=== PATIENT | female | born 1995 | race African-American/Black ===

== ENCOUNTER 2016-11-03 03:11 | Emergency (ER) | payer MEDICAID ==
[2016-11-03] MEDS ORDERED: NORMAL SALINE 1000 ML 1,000 ML IV ONE ×2 (03:34→04:49)
[2016-11-03] MEDS ORDERED: METOCLOPRAMIDE HCL INJ/PF 10 MG/2 ML SDV IV ONE (03:34)
[2016-11-03] MEDS ORDERED: DIPHENHYDRAMINE HCL 50 MG/ML VIAL IV ONE (03:34)
--- NOTE | 2016-11-03 03:36 | ER Document Report ---
ED GI/ - General Chief Complaint: Pelvic Pain Stated Complaint: ABDOMINAL PAIN,VOMITING Time Seen by Provider: 11/03/16 03:26 Notes: Patient is a 21-year-old female who comes emergency department for chief complaint of lower abdominal pain. She is at 6 weeks gestation by last menstrual period. She denies vaginal bleeding, she states symptoms started yesterday, she has vomited 10 times since yesterday. She states she thinks she has a vaginal discharge, she also states she thinks her "boyfriend was messing around". She denies any fever, flank pain, or dysuria. She denies any surgeries or daily medications other than vitamins. TRAVEL OUTSIDE OF THE [place] IN LAST 30 DAYS: No - Related Data Allergies/Adverse Reactions: No Known Allergies Allergy (Verified 11/03/16 03:16) Home Medications: Current Home Medications Pnv No.95/Ferrous Fum/Folic AC [ Multivitamin Tablet] 1 each PO DAILY [History] Past Medical History - General Information source: Patient - Social History Smoking Status: Never Smoker Frequency of alcohol use: None Drug Abuse: None Lives with: Family Family History: Reviewed & Not Pertinent Patient has suicidal ideation: No Patient has homicidal ideation: No - Medical History Medical History: Negative Renal/ Medical History: Denies: Hx Peritoneal Dialysis Surgical Hx: Negative - Immunizations Immunizations up to date: Yes Hx Diphtheria, Pertussis, Tetanus Vaccination: Yes Review of Systems - Review of Systems Constitutional: No symptoms reported EENT: No symptoms reported Cardiovascular: No symptoms reported Respiratory: No symptoms reported Gastrointestinal: See HPI Genitourinary: See HPI Female Genitourinary: See HPI Musculoskeletal: No symptoms reported Skin: No symptoms reported Hematologic/Lymphatic: No symptoms reported Neurological/Psychological: No symptoms reported Physical Exam - Vital signs Vitals: Temp Pulse Resp BP Pulse Ox 99.0 F 84 18 121/68 98 11/03/16 03:17 11/03/16 03:17 11/03/16 03:17 11/03/16 03:17 11/03/16 03:17 Interpretation: Normal - General General appearance: Alert, Anxious In distress: Moderate - patient vomited and appears uncomfortable - HEENT Head: Normocephalic, Atraumatic Eyes: Normal Pupils: PERRL - Respiratory Respiratory status: No respiratory distress Chest status: Nontender Breath sounds: Normal Chest palpation: Normal - Cardiovascular Rhythm: Regular. No: Tachycardia Heart sounds: Normal auscultation, S1 appreciated, S2 appreciated Murmur: No - Abdominal Inspection: Normal Distension: No distension Bowel sounds: Normal Tenderness: Tender - Generalized lower abdominal tenderness without guarding Organomegaly: No organomegaly - Genitourinary External exam: Normal Speculum exam: Cervix closed, Vaginal discharge - Minimal, scant. No: Cervix open, Products of conception Vaginal bleeding: None Bimanuel exam: No: Cervical motion tender - Back Back: Normal, Nontender. No: Tender, CVA tenderness - Extremities General upper extremity: Normal inspection, Nontender, Normal color, Normal ROM , Normal temperature General lower extremity: Normal inspection, Nontender, Normal color, Normal ROM , Normal temperature, Normal weight bearing. No: Brandon's sign - Neurological Neuro grossly intact: Yes Cognition: Normal Orientation: AAOx4 [place] Coma Scale Eye Opening: Spontaneous [place] Coma Scale Verbal: Oriented [place] Coma Scale Motor: Obeys Commands [place] Coma Scale Total: 15 Speech: Normal Motor strength normal: LUE, RUE, LLE, RLE Sensory: Normal - Psychological Associated symptoms: Anxious - Skin Skin Temperature: Warm Skin Moisture: Dry Skin Color: Normal Course - Re-evaluation Re-evalutation: Patient initially very uncomfortable, she vomited at bedside. She has generalized lower abdominal tenderness without specific area of guarding. No fever, no tachycardia, no hypotension. After medications patient is much more comfortable, however she did vomit again after Reglan and Benadryl. Giving more IV fluids, giving Zofran. CBC unremarkable, chemistry generally unremarkable, urine shows ketones, white blood cells, also has squamous epithelials. Pelvic exam with no concerning abnormalities including no bleeding, scant discharge. No cervical motion tenderness. Yeast present, trichomonas negative, gonorrhea and chlamydia negative. Ultrasound showing living IUP with slightly low heart rate, small subchorionic bleed, threatened but no emergent abnormalities. Will perform p.o. trial to determine if patient can be at home. Patient is in full agreement with this. Patient was introduced to Camille Mobley PA-C at bedside. - Vital Signs Vital signs: Temp Pulse Resp BP Pulse Ox 99.0 F 84 18 121/68 98 11/03/16 03:17 11/03/16 03:17 11/03/16 05:04 11/03/16 03:17 11/03/16 03:17 - Laboratory Result Diagrams: 11/03/16 04:18 11/03/16 04:18 Laboratory results interpreted by me: 11/03/16 11/03/16 11/03/16 04:18 04:18 04:18 Hgb 11.4 L Hct 33.8 L Plt Count 144 L Seg Neutrophils % 84.9 H Lymphocytes % 9.0 L Beta HCG, Quant 10874.00 H Urine Protein 30 H Urine Ketones 80 H Ur Leukocyte Esterase LARGE H Discharge - Discharge Clinical Impression: Vomiting affecting Abdominal pain Qualifiers: Abdominal location: lower abdomen, unspecified Qualified Code(s): R10.30 - Lower abdominal pain, unspecified
[2016-11-03 04:32] LABS: ABSOLUTE LYMPHOCYTES (AUTO) 0.8 10^3/uL (0.5-4.7); ABSOLUTE MONOCYTES (AUTO) 0.5 10^3/uL (0.1-1.4); ABSOLUTE NEUT (AUTO) 7.9 10^3/uL (1.7-8.2); BASOPHILS % (AUTO) 0.2 % (0-2); HEMATOCRIT 33.8 % (36.0-47.0); HEMOGLOBIN 11.4 g/dL (12.0-15.5); HGB HCT DIFFERENCE 0.4; MEAN CORPUSCULAR HEMOGLOBIN 30.2 pg (27.0-33.4); MEAN CORPUSCULAR HGB CONC 33.9 g/dL (32.0-36.0); MEAN CORPUSCULAR VOLUME 89 fl (80-97); MONOCYTES % (AUTO) 5.9 % (3-13); RED CELL DISTRIBUTION WIDTH 13.2 % (11.5-14.0); SEGMENTED NEUTROPHILS % (AUTO) 84.9 % (42-78); WHITE BLOOD COUNT 9.3 10^3/uL (4.0-10.5)
[2016-11-03 04:43] LABS: ALANINE AMINOTRANSFERASE 19 U/L (9-52); ALBUMIN 3.9 g/dL (3.5-5.0); ALKALINE PHOSPHATASE 66 U/L (38-126); AMORPHOUS SEDIMENT,URINE TRACE /HPF; ANION GAP 11 (5-19); APPEARANCE,URINE CLOUDY; ASPARTATE AMINO TRANSFERASE 17 U/L (14-36); BILIRUBIN,DIRECT 0.3 mg/dL (0.0-0.4); BILIRUBIN,TOTAL 0.5 mg/dL (0.2-1.3); BILIRUBIN,URINE NEGATIVE (NEGATIVE); BLOOD UREA NITROGEN 7 mg/dL (7-20); CALCIUM 9.5 mg/dL (8.4-10.2); CARBON DIOXIDE 22 mmol/L (22-30); CHLORIDE 105 mmol/L (98-107); CREATININE RESULT 0.62 mg/dL (0.52-1.25); GLUCOSE 110 mg/dL (75-110); GLUCOSE, URINE NEGATIVE (NEGATIVE); KETONES,URINE 80 mg/dL (NEGATIVE); LEUKOCYTE ESTERASE,URINE LARGE (NEGATIVE); NITRITE,URINE NEGATIVE (NEGATIVE); POTASSIUM 3.7 mmol/L (3.6-5.0); PROTEIN,URINE 30 mg/dL (NEGATIVE); SODIUM 138.4 mmol/L (137-145); TOTAL PROTEIN 7.1 g/dL (6.3-8.2); UROBILINOGEN,URINE NEGATIVE mg/dL (<2.0)
[2016-11-03] MEDS ORDERED: ONDANSETRON HCL INJ/PF 4 MG/2 ML SDV IV ONE (04:52)
--- NOTE | 2016-11-03 05:59 | RADIOLOGY REPORT (SQ) ---
EXAM DESCRIPTION: U/S OB TRANSVAG W/DOPPLER COMPLETED DATE/TIME: 11/03/2016 5:36 am REASON FOR STUDY: pelvic pain, + HCG COMPARISON: None. TECHNIQUE: Transvaginal static and realtime grayscale images acquired of the pelvis. Additional den cted spectral and color Doppler images recorded. All images stored on PACs. [id number] LIMITATIONS: None. FINDINGS: FETUS: Living intrauterine . EGA: 6 weeks 1 day CHARISSA: 06/28/2017 FHR: 116 beats per minute. SUBCHORIONIC BLEED: Yes. SIZE OF BLEED: 1.6 x 0.6 x 0.6 cm. UTERUS: No masses. No anomalies. CERVICAL LENGTH: 3.0 cm. Closed. RIGHT ADNEXA: Normal ovary with normal vascular flow. No adnexal free fluid. No adnexal masses. LEFT ADNEXA: Ovary not identified. No adnexal free fluid. No adnexal masses. FREE FLUID: Trace. OTHER: No other significant finding. IMPRESSION: LIVING INTRAUTERINE , at-risk with small subchorionic hemorrhage. EGA 6 weeks 1 day Trimester of : First - 0 to 13 weeks. TECHNICAL DOCUMENTATION: JOB ID: [id number] [employer]- All Rights Reserved
[2016-11-03 06:55] LABS: CHLAM PCR NOT DETECTED (NOT DETECT)
[2016-11-03 08:28] VITALS: BP 114/57
[2016-11-03] MEDS ORDERED: ONDANSETRON ODT 4 MG TAB (6 TAB/DSPK) PO PRN (08:38)
== END 2016-11-03 08:51 | disposition home or self-care (01) ==
LOC: ER 03:11
DX: R11.10 Vomiting, unspecified (principal); R10.30 Lower abdominal pain, unspecified; R10.2 Pelvic and perineal pain
CPT/HCPCS: 99284; 96374; 96375; 86900; 86901; 36415; 87210; 84702; 85025; 80053; 81001; 87491; 87591; 76817; 93976; J1200; J2765; J2405; J7030

== ENCOUNTER 2016-11-04 07:44 | Emergency (ER) | payer MEDICAID ==
--- NOTE | 2016-11-04 08:16 | ER Document Report ---
ED GI/ - General Chief Complaint: Abdominal Pain Stated Complaint: ABDOMINAL PAIN Time Seen by Provider: 11/04/16 08:16 Notes: Patient is a 21-year-old female, 6 weeks 1 day , presents with abdominal pain and cramping. She was seen in the ER yesterday for similar symptoms and had an intrauterine with a small subchorionic bleed confirmed on ultrasound. Patient states that she is still having the pain. Denies vaginal bleeding, vomiting, fevers, headache, flank pain, vaginal discharge, diarrhea or constipation. TRAVEL OUTSIDE OF THE [place] IN LAST 30 DAYS: No - Related Data Allergies/Adverse Reactions: No Known Allergies Allergy (Verified 11/04/16 09:20) Past Medical History - General Information source: Patient - Social History Smoking Status: Unknown if Ever Smoked Family History: Reviewed & Not Pertinent Renal/ Medical History: Denies: Hx Peritoneal Dialysis - Immunizations Immunizations up to date: Yes Hx Diphtheria, Pertussis, Tetanus Vaccination: Yes Review of Systems - Review of Systems Notes: REVIEW OF SYSTEMS: CONSTITUTIONAL: -fevers, -chills EENT: -eye pain, -difficulty swallowing, -nasal congestion CARDIOVASCULAR:-chest pain, -syncope. RESPIRATORY: -cough, -SOB GASTROINTESTINAL: +suprapubic abdominal pain, -nausea, -vomiting, -diarrhea GENITOURINARY: +dysuria, -hematuria MUSCULOSKELETAL: -back pain, -neck pain SKIN: -rash or skin lesions. HEMATOLOGIC: -easy bruising or bleeding. LYMPHATIC: -swollen, enlarged glands. NEUROLOGICAL: -altered mental status or loss of consciousness, -headache, - neurologic symptoms PSYCHIATRIC: -anxiety, -depression. ALL OTHER SYSTEMS REVIEWED AND NEGATIVE. Physical Exam - Vital signs Vitals: Temp Pulse Resp BP Pulse Ox 98.5 F 65 24 H 115/60 100 11/04/16 07:48 11/04/16 07:48 11/04/16 07:48 11/04/16 07:48 11/04/16 07:48 - Notes Notes: PHYSICAL EXAMINATION: GENERAL: Well-appearing, well-nourished and in no acute distress. HEAD: Atraumatic, normocephalic. EYES: Pupils equal round and reactive to light, extraocular movements intact, sclera anicteric, conjunctiva are normal. ENT: nares patent, oropharynx clear without exudates. Moist mucous membranes. NECK: Normal range of motion, supple without lymphadenopathy LUNGS: Breath sounds clear to auscultation bilaterally and equal. No wheezes rales or rhonchi. HEART: Regular rate and rhythm without murmurs ABDOMEN: Soft, moderate suprapubic tenderness, normoactive bowel sounds. No guarding, no rebound. No masses appreciated. EXTREMITIES: Normal range of motion, no pitting or edema. No cyanosis. NEUROLOGICAL: Cranial nerves grossly intact. Normal speech, normal gait. Normal sensory and motor exams. PSYCH: Normal mood, normal affect. SKIN: Warm, Dry, normal turgor, no rashes or lesions noted. Course - Re-evaluation Re-evalutation: Patient appears well. She has evidence of a UTI. Her beta hCG is progressing as expected and her ultrasound confirms intrauterine without evidence of a miscarriage. Patient says that she cannot swallow pills, so will begin antibiotics and have her follow-up with OB. - Vital Signs Vital signs: Temp Pulse Resp BP Pulse Ox 98.1 F 65 21 H 117/74 100 11/04/16 10:22 11/04/16 07:48 11/04/16 10:22 11/04/16 10:22 11/04/16 10:22 - Laboratory Laboratory results interpreted by me: 11/04/16 11/04/16 10:05 10:20 Beta HCG, Quant 17133.00 H Urine Protein 30 H Urine Ketones 80 H Ur Leukocyte Esterase LARGE H - Diagnostic Test Radiology reviewed: Image reviewed, Reports reviewed Radiology results interpreted by me: OB US: single IUP [id number] Discharge - Discharge Clinical Impression: Abdominal pain affecting UTI (urinary tract infection) Qualifiers: Urinary tract infection type: acute cystitis Hematuria presence: with hematuria Qualified Code(s): N30.01 - Acute cystitis with hematuria Condition: Stable Disposition: HOME, SELF-CARE Additional Instructions: URINARY TRACT INFECTION: Your evaluation indicates that you have a urinary tract infection. This is due to germs growing in the bladder. This is a common problem. This infection usually responds quickly to antibiotics. Your antibiotic should be taken exactly as prescribed. Drink plenty of fluids -- three to four quarts a day. Occasionally, a bladder anesthetic will be prescribed to help stop the feeling of urgency until the antibiotic has a chance to clear the infection. This may cause your urine to be dark orange. Certain urine infections require a culture. If the doctor obtained a culture, the results will be back in two days. You should call to see if a change in treatment is needed. A repeat urinalysis after you finish treatment is often recommended. The physician will let you know if further testing is required. Call the doctor if you develop fever, chills, flank pain, inability to urinate, or blood in the urine. ANTIBIOTIC THERAPY: You have been given an antibiotic prescription. It's important that you take all the medication, unless instructed otherwise by your physician. Failure to complete the entire course can result in relapse of your condition. Common side effects of antibiotics include nausea, intestinal cramping, or diarrhea. Women may develop vaginal yeast infections, and babies can get yeast (thrush) in the mouth following the use of antibiotics. Contact your physician if you develop significant side effects from this medication. Allergy to this antibiotic can result in hives, wheezing, faintness, or itching. If symptoms of allergy occur, stop the medication and call the doctor. NITROFURANTOIN (MACRODANTIN, MACROBID): You have received a prescription for nitrofurantoin (Macrodantin). This antibiotic is used for urinary tract infections. Women who are or nursing should notify the physician before taking this medicine. If you have ever had a problem caused by this medication in the past, be sure the physician is aware of it. Common side effects of this medicine include nausea, vomiting, or decreased appetite. Notify your physician if these side effects become severe. Immediately stop this medicine and call the physician if you develop cough , shortness of breath, chest pain, weakness, jaundice (yellow color of the skin and whites of the eyes), or a skin rash. TRIMETHOPRIM-SULFA: You have been given a prescription for trimethoprim-sulfa (TMS, Septra, Bactrim). This is a combination antibiotic of the sulfa class, often used for urinary tract infections, middle ear infections, bronchitis, shigella intestinal infection, and Pneumocystis pneumonia. TMS is usually well-tolerated. Occasional side effects include nausea and decreased appetite. Septra is not recommended for infants less than two months of age. Do not take this medication if you have experienced severe side effects or allergy to sulfa medicine. You should stop this medicine at once and contact your physician if you develop any rash, joint pain, shortness of breath, bruising, or jaundice ( yellow color in the skin), or if you develop any other new or unusual symptoms. CEPHALEXIN: The antibiotic you've been prescribed is a member of the cephalosporin class. This type of antibiotic covers a wide variety of infections, including those of the skin, lungs, and urinary tract. It's useful for staph infections. This antibiotic is slightly similar to the penicillin family. In rare cases , a person who is allergic to penicillin will also be allergic to this medication. If you have had a severe allergic reaction to penicillin, and have not taken this antibiotic since that time, notify your doctor. Antibiotics which cover many germs ("broad spectrum" antibiotics) are more likely to cause diarrhea or "yeast" infections. Women prone to vaginal yeast problems may suffer an attack after taking this antibiotic. In infants, oral thrush (white spots "stuck" on the cheek) or yeast diaper rash may result. See your doctor if these problems occur. Call at once if you develop itching, hives , shortness of breath, or lightheadedness. URINARY ANESTHETIC AGENT: You have been given a medication (Pyridium) for urinary tract discomfort. This medicine numbs the lining of the bladder and urethra, resulting in less pain, burning, and urgency. You may take it as needed, according to instructions. When the symptoms resolve, you can stop this medication (be sure to continue any other medications the doctor has given you). This medicine turns the urine a dark orange. It may stain underwear. Occasionally, it can cause nausea. Return for evaluation if there are any unexpected effects, such as itching, hives, or shortness of breath. FOLLOW-UP CARE: If you have been referred to a physician for follow-up care, call the physician s office for an appointment as you were instructed or within the next two days. If you experience worsening or a significant change in your symptoms, notify the physician immediately or return to the Emergency Department at any time for re-evaluation. : You are . care is best started as early in as possible. If you're unsure about continuing this , you should discuss this with your physician or with service desk director at [facility]. You should take only medications approved by your physician. Acetaminophen can safely be taken for minor pains. As a rule, medication for chronic conditions such as asthma or seizures can safely be continued. You should discuss with the physician every medicine you take. Any regular exercise program can be continued. Talk to your physician, however, before engaging in competitive or demanding sports. Alcohol, smoking, and "street drugs" are dangerous to your baby. Cocaine is especially dangerous. Don't use any illicit drugs! THREATENED MISCARRIAGE: You have been evaluated for a possible miscarriage. At this time, there is no indication that a miscarriage will occur. Most women with your symptoms will go on to have a perfectly normal baby. However, careful observation will be necessary. A miscarriage occurs when the fetus is abnormal. There is no medicine or treatment for it. You should rest in bed until the symptoms have resolved. Do not douche or have sex for at least a week, or until OK'd by the doctor. Call the doctor or return for re-examination if there is an increase in bleeding or cramping, or passage of tissue. FOLLOW-UP CARE: If you have been referred to a physician for follow-up care, call the physician s office for an appointment as you were instructed or within the next two days. If you experience worsening or a significant change in your symptoms (very heavy bleeding with large clots of blood, passage of tissue, more severe abdominal / pelvic pain or cramping, feeling faint or severe weakness, fever, etc.), notify the physician immediately or return to the Emergency Department at any time for re-evaluation. OBSTETRIC-GYNECOLOGIC (OB-LEAD ESTHETICIAN) PHYSICIANS IN [place]: [facility] [address] [place], [place] [phone] [facility] [address] [place] [address] [phone] For active duty and dependents diagnosed with a threatened or miscarriage, you should follow up in the following manner: Standard patients who have a local civilian provider should follow up with that provider. Patients of the Family Practice Clinic should call your Team Nurse at 8: 00 am the following morning for further instructions. If you are neither a Standard patient nor a patient of the Family Practice Clinic, you should follow up at the [facility] ([facility]) . Patients already enrolled in the [facility] OB Clinic, Prime patients not assigned to the Family Practice Clinic, and Active Duty patients not assigned to [facility] should report to the [facility] Lab at 8:00 am the next morning that the [facility] OB Clinic is open and then you will be seen in the OB Clinic at 11:00 am. Prescriptions: Cephalexin Monohydrate [Keflex 250 mg/5 ml Susp] 500 mg PO Q8H 7 Days Referrals: EYAL SANDERS MD [ACTIVE STAFF] - Follow up as needed
[2016-11-04] MEDS ORDERED: ACETAMINOPHEN 325 MG TABLET PO ONE (08:17)
[2016-11-04] MEDS ORDERED: NITROFURANTOIN MONOHYD/M-CRYST 100 MG CAPSULE PO ONE (08:18)
[2016-11-04] MEDS ORDERED: PHENAZOPYRIDINE HCL 200 MG TABLET PO ONE (08:19)
[2016-11-04] MEDS ORDERED: METOCLOPRAMIDE HCL INJ/PF 10 MG/2 ML SDV IV ONE (08:53)
[2016-11-04] MEDS ORDERED: DIPHENHYDRAMINE HCL 50 MG/ML VIAL IV ONE (08:54)
--- NOTE | 2016-11-04 10:13 | RADIOLOGY REPORT (SQ) ---
EXAM DESCRIPTION: U/S OB TRANSVAGINAL W/O DOP COMPLETED DATE/TIME: 11/04/2016 10:00 am REASON FOR STUDY: [id number] pelvic pain COMPARISON: 11/03/2016. TECHNIQUE: Transvaginal static and realtime grayscale images acquired of the pelvis. Additional den cted spectral and color Doppler images recorded. All images stored on PACs. bHCG: Not applicable. LIMITATIONS: None. FINDINGS: FETUS: Living intrauterine . EGA: 6 week 1 day. CHARISSA: 06/29/2017. FHR: 118 beats per minute. SUBCHORIONIC BLEED: Yes. SIZE OF BLEED: 0.4 x 1.6 cm. UTERUS: No masses. No anomalies. CERVICAL LENGTH: 3.4 cm Closed. RIGHT ADNEXA: Normal ovary with normal vascular flow. No adnexal free fluid. No adnexal masses. LEFT ADNEXA: Normal ovary with normal vascular flow. No adnexal free fluid. No adnexal masses. FREE FLUID: None. OTHER: No other significant finding. IMPRESSION: LIVING INTRAUTERINE . EGA 6 WEEK 1 DAY. NO CHANGE IN THE SUBCHORIONIC BLEED. Trimester of : First - 0 to 13 weeks. TECHNICAL DOCUMENTATION: JOB ID: [id number] [employer] ([employer])- All Rights Reserved
[2016-11-04 10:32] VITALS: BP 117/74
[2016-11-04 10:50] LABS: APPEARANCE,URINE CLOUDY; BILIRUBIN,URINE NEGATIVE (NEGATIVE); GLUCOSE, URINE NEGATIVE (NEGATIVE); KETONES,URINE 80 mg/dL (NEGATIVE); LEUKOCYTE ESTERASE,URINE LARGE (NEGATIVE); NITRITE,URINE NEGATIVE (NEGATIVE); PROTEIN,URINE 30 mg/dL (NEGATIVE); URINE SPECIFIC GRAVITY 1.027; UROBILINOGEN,URINE NEGATIVE mg/dL (<2.0)
[2016-11-04] MEDS ORDERED: CEFTRIAXONE 1 GM/D5W RTU 50 ML IV ONE (10:53)
== END 2016-11-04 12:49 | disposition home or self-care (01) ==
LOC: ER 07:44
DX: O23.11 Infections of bladder in pregnancy, first trimester (principal); O26.891 Other specified pregnancy related conditions, first trimester; R10.30 Lower abdominal pain, unspecified; R31.9 Hematuria, unspecified; Z3A.01 Less than 8 weeks gestation of pregnancy
CPT/HCPCS: 36415; 84702; 81001; 76817; J1200; J2765; J0696; 96365; 96375; 99284